=== PATIENT | female | born 1985 | race Caucasian/White ===

== ENCOUNTER 2017-10-28 03:26 | Inpatient (IN) | payer OTHER ==
[2017-10-28 20:59] VITALS: O2SAT 100
[2017-10-29] MEDS ORDERED: XYLOCAINE 1% HCL 20 ML MDV IJ PRN (01:40)
[2017-10-29] MEDS ORDERED: PITOCIN 30 UNITS/ LR 500 ML 500 ML IV SCH (02:00)
[2017-10-29 03:26] LABS: BASOPHIL % 0.1 % (0.0-0.4); Basophil (Absolute #) 0.01 (0-0.4); Eosinophil (Absolute #) 0.11 (0-0.5); Granulocyte Absolute (ANC) 7.91 (1.4-6.9); Granulocytes % 72.6 % (36.0-66.0); Hematocrit 34.8 % (35-47); Hemoglobin 11.2 gm/dl (12.0-16.0); Lymphocytes % 20.2 % (24.0-44.0); Mean Cell Volume 86.8 fl (78-100); Mean Corpuscular Hemoglobin 27.9 pg (26-32); Mean Corpuscular Hgb Concent. 32.2 g/dl (32-36); Mean Platelet Volume 11.1 fl (6-9.5); Monocyte (Absolute #) 0.66 (0.0-1.3); Monocytes % 6.1 % (0.0-12.0); Platelet Count 182 K/mm3 (150-450); Red Blood Count 4.01 M/mm3 (4.1-5.4); Red Cell Distribution Width 13.3 % (11.5-14.0); White Blood Count 10.9 K/mm3 (4.0-10.5)
[2017-10-29] MEDS ORDERED: OB EPIDURAL NAROPIN/SUFENTANIL IN NACL EPIDURAL PRN (03:30)
[2017-10-29] MEDS ORDERED: Ephedrine Sulfate 50 MG/ML IV PRN (03:30)
[2017-10-29] MEDS ORDERED: Lactated Ringers 1,000 ML IV ONE (03:30)
[2017-10-29 03:53] LABS: Amphetamine,Urine NEG. (NEGATIVE); Barbiturate,Urine NEG. (NEGATIVE); Benzodiazepine,Urine NEG. (NEGATIVE); Cocaine,Urine NEG. (NEGATIVE); Methadone,Urine NEG. (NEGATIVE); Opiate,Urine NEG. (NEGATIVE); PCP,Urine NEG. (NEGATIVE); THC,Urine NEG. (NEGATIVE)
[2017-10-29] MEDS ORDERED: Zofran 4 MG/2 ML VIAL IV PRN (04:56)
[2017-10-29] MEDS: Lactated Ringers 1,000 ML IV SCH ×2 (04:56→13:30)
[2017-10-29] MEDS ORDERED: BENADRYL 50 MG/ML IV PRN (05:11)
[2017-10-29] MEDS ORDERED: Dermoplast Spray TP PRN (10:48)
[2017-10-29] MEDS ORDERED: Anucort-HC SUPPOSITORY PR PRN (10:48)
[2017-10-29] MEDS ORDERED: Mylicon 80MG PO PRN (10:48)
[2017-10-29] MEDS ORDERED: Dulcolax 10 MG SUPP PR PRN (10:48)
[2017-10-29] MEDS ORDERED: NORCO 5/325 MG PO PRN (10:48)
[2017-10-29] MEDS ORDERED: LANSINOH 40 GM TOP PRN (10:48)
[2017-10-29] MEDS ORDERED: TYLENOL EXTRA STRENGTH 500 MG PO PRN (10:48)
[2017-10-29] MEDS ORDERED: Ambien 10 MG PO PRN (10:48)
[2017-10-29] MEDS ORDERED: CORTISONE 1% CREAM TP PRN (10:48)
[2017-10-29] MEDS ORDERED: TUCKS TP PRN (10:48)
[2017-10-29] MEDS: MOTRIN 400 MG PO PRN (22:37)
[2017-10-29] MEDS: Colace 100 MG PO SCH (22:39)
[2017-10-30 05:24] LABS: BASOPHIL % 0.2 % (0.0-0.4); Basophil (Absolute #) 0.02 (0-0.4); Eosinophil (Absolute #) 0.13 (0-0.5); Granulocyte Absolute (ANC) 10.11 (1.4-6.9); Granulocytes % 77.3 % (36.0-66.0); Hematocrit 34.6 % (35-47); Hemoglobin 10.9 gm/dl (12.0-16.0); Lymphocytes % 16.1 % (24.0-44.0); Mean Cell Volume 88.5 fl (78-100); Mean Corpuscular Hgb Concent. 31.5 g/dl (32-36); Monocytes % 5.4 % (0.0-12.0); Platelet Count 169 K/mm3 (150-450); Red Blood Count 3.91 M/mm3 (4.1-5.4); Red Cell Distribution Width 13.6 % (11.5-14.0); White Blood Count 13.1 K/mm3 (4.0-10.5)
[2017-10-30 05:42] LABS: Mean Corpuscular Hemoglobin 27.8 pg (26-32)
[2017-10-30] MEDS: Colace 100 MG PO SCH ×2 (10:33→23:43)
[2017-10-30] MEDS: FERREX 150 PO SCH (10:33)
[2017-10-30] MEDS: MOTRIN 400 MG PO PRN ×2 (16:48→23:42)
--- NOTE | 2017-10-31 08:50 | PCM.DS ---
Discharge Summary Date of Admission: 10/29/17 03:26 Admitting Physician: AMRIT MOORE Consults: Consults on Case 10/29/17 03:30 Notify Anesthesia Provider PRN 10/29/17 10:48 Notify Physician ROUTINE Primary Care Provider: GUERDA MASON DAYANNA Allergies Allergies Penicillins Allergy (Intermediate, Verified 10/28/17 21:42) Rash Sulfa (Sulfonamide Antibiotics) Allergy (Intermediate, Verified 10/28/17 21:40) Rash codeine Adverse Reaction (Mild, Verified 10/28/17 21:42) Nausea pt states it makes her stomach hurt and she feels nauseated Hospital Summary - Hospital Course Hospital Course: Pt was at 38+ weeks who came in jodi. Was found to be in active labor. AROM the next morning with delivery about 2.5 hours later. Short second stage but 2 minute shoulder dystocia. Baby weighed 6lb 9 oz. well. Mom without any complaints this morning. - Vitals & Intake/Output Vital Signs: Vital Signs Temperature 98.1 F 10/31/17 02:00 Pulse Rate 65 10/31/17 02:00 Respiratory Rate 18 10/31/17 02:00 Blood Pressure 108/58 10/31/17 02:00 O2 Sat by Pulse Oximetry 100 10/28/17 20:36 Intake & Output: Intake & Output 10/28/17 10/29/17 10/30/17 10/31/17 11:59 11:59 11:59 11:59 Intake Total 3229 Output Total 150 Balance 3229 -150 Weight 77.564 kg - Lab Result Diagrams: 10/30/17 05:02 Discharge Exam General Appearance: no apparent distress, alert Neurologic Exam: oriented x 3, cooperative Skin Exam: normal color, warm, dry, No rash Ears, Nose, Throat Exam: moist mucous membranes Respiratory Exam: normal breath sounds, lungs clear, No crackles/rales, No rhonchi, No wheezing Cardiovascular Exam: regular rate/rhythm, normal heart sounds, No murmur Gastrointestinal/Abdomen Exam: soft, other (fundus firm under umbilicus) Extremity Exam: normal inspection, No pedal edema, No swelling Final Diagnosis/Problem List - Final Discharge Diagnosis/Problem (1) Spontaneous vaginal delivery Current Visit: Yes Status: Acute (2) Anemia Current Visit: Yes Status: Acute Assessment & Plan: mild. home on small dose iron for 2 weeks. - Discharge Disposition: Home, Self-Care Condition: Stable Prescriptions: New Ferrous Sulfate 325 mg [Feosol 325 mg] 325 mg PO DAILY #14 tablet Continue Vits W-Ca,Fe,FA(<1Mg) [] 1 each PO DAILY Follow up with: GUERDA MASON MD [Primary Care Provider] - 1 Week
[2017-10-31 09:10] VITALS: BP 112/72; PULSE 62
[2017-10-31] MEDS: Colace 100 MG PO SCH (11:23)
[2017-10-31] MEDS: FERREX 150 PO SCH (11:24)
== END 2017-10-31 13:30 | disposition home or self-care (01) | DRG 775 ==
LOC: OB 03:26 → OBSVTOIN 10-29 03:26
PROVIDERS: ADMIT Family Medicine; ATTEND Family Medicine
PROC: 10E0XZZ Delivery of Products of Conception, External Approach (ICD-10-PCS; principal; 2017-10-29)
DX: O80 Encounter for full-term uncomplicated delivery (principal); Z3A.38 38 weeks gestation of pregnancy; Z37.0 Single live birth; D64.9 Anemia, unspecified
CPT/HCPCS: 01967; 36415; 80307; 85025; G0378; J2405; J2590; J2795; A9270-GY